=== PATIENT | female | born 1955 | race Hispanic/Latino ===

== ENCOUNTER 2024-09-20 11:40 | Emergency (ER) | payer MEDICARE ==
[~2024-09-20] VITALS: Ht 152.4 cm; Wt 145.1 kg
[2024-09-20 12:35] VITALS: TEMP 97.9
[2024-09-20 16:04] VITALS: PULSE 81; RESP 20; O2SAT 98
== END 2024-09-20 17:54 | disposition home or self-care (01) ==
LOC: ER 17:27
DX: L89.892 Pressure ulcer of other site, stage 2 (principal); I10 Essential (primary) hypertension; E11.9 Type 2 diabetes mellitus without complications; E78.5 Hyperlipidemia, unspecified
CPT/HCPCS: 99283